=== PATIENT | female | born 1995 | race Caucasian/White ===

== ENCOUNTER 2017-01-11 09:48 | Day surgery (SDC) | payer BC, OTHER ==
[2017-01-10 14:10] VITALS: BMI 34.3
[2017-01-11] MEDS ORDERED: Oxymetazoline HCl 0.05% ( 15 ML ) ONE ×2 (10:17→12:43)
[2017-01-11 11:18] LABS: Hematocrit 39.8 % (36.0-47.0)
[2017-01-11] MEDS ORDERED: Lidocaine 2% w/Epinephrine 1:200K 20 ML VIAL ONE (12:43)
[2017-01-11] MEDS ORDERED: Bupivacaine 0.25% HCL 30 ML VIAL ONE (12:43)
[2017-01-11] MEDS ORDERED: Fentanyl 250 MCG/5 ML VIAL ONE (12:59)
[2017-01-11] MEDS ORDERED: Ondansetron HCl/PF 4 MG/2 ML Vial ONE (13:15)
[2017-01-11] MEDS ORDERED: Lidocaine 2% PF 10 ML AMP (For Epidural Use) ONE (13:15)
[2017-01-11] MEDS ORDERED: Propofol 200 MG/20 ML VIAL ONE (13:15)
[2017-01-11] MEDS ORDERED: Fentanyl 100 MCG/2 ML VIAL ONE ×2 (14:17→14:33)
--- NOTE | 2017-01-11 18:12 | OP ---
PREOPERATIVE DIAGNOSES: Chronic sinusitis, bilateral frontoethmoid mucoceles, and chronic right max illary sinusitis. POSTOPERATIVE DIAGNOSES: Chronic sinusitis, bilateral frontoethmoid mucoceles, and chronic right ma xillary sinusitis. PROCEDURES PERFORMED: 1. Bilateral nasal endoscopy with maxillary antrostomy with removal of tissue. 2. Bilateral nasal endoscopy with total ethmoidectomy. 3. Bilateral nasal endoscopy with frontal sinusotomy. 4. Bilateral nasal endoscopy with submucosal resection of inferior turbinates. FINDINGS: The patient was found to have bilateral frontoethmoid mucoceles from previous surgery wit h purulence encountered in each respective mucocele. PROCEDURE IN DETAIL: After consent was obtained, the patient was identified, brought to the operati ng room, and placed on the operating room table in the supine position. Consent was obtained, notif zaheer the patient of the possibility of additional infections, bleeding, brain injury, and eye/orbita l injury. The patient was placed on the operating room table, and general endotracheal anesthesia and intravenous access was obtained. The patient was then positioned, prepped and draped for endosc opic sinus surgery. Nasal preparation included trimming nasal vestibular hairs and spraying in topi aaron Afrin. We then placed Afrin topical solution on nasal pledgets and strategically located them i ntranasally. The perinasal mucosa was injected with 1% lidocaine with 1:100,000 epinephrine in the submucoperichondrial plane of the septum, lateral nasal wall, and anterior to the uncinate. The pat ient was then prepped and draped in a sterile fashion and positioned for endoscopic sinus surgery. Maxillary Antrostomy: The uncinate was then identified and the extent of the uncinate was appreciat ed by out-fracturing the uncinate with the ball-tip probe. We then used the sickle blade to disarti culate the uncinate from the lateral nasal wall. This was then removed with straight biting and upb iting punches with the remaining shrouds of mucosa and bony septum removed with the micro-debrider. The natural os of the maxillary sinus was then identified and enlarged with the maxillary punches a nd back biting forceps. Total Ethmoidectomy: The anterior face of the ethmoid bulla was entered and with the micro-debrider , dissection continued posteriorly to the ground lamella. The limits of dissection included the ins ertion of the middle turbinate, medial orbital wall, and base of skull. We similarly identified the frontal recess and removed shrouds of bone and debris in that region to obtain patency into the agg er nasi region and frontal recess. We then entered the ground lamella and its anteroinferior aspect and proceeded posteriorly, opening the posterior ethmoid air-cell system. Again, the limits of dis section included the base of skull and medial orbital wall. Frontal sinusotomy: The anterior face of the ethmoid bulla was entered and with the micro-debrider, dissection continued posteriorly to the ground lamella. The limits of dissection included the inse rtion of the middle turbinate, medial orbital wall, and base of skull. We similarly identified the frontal recess and removed shrouds of bone and debris in that region to obtain patency into the Agge r Nasi region and frontal recess. We then entered the ground lamella and its anteroinferior aspect and proceeded posteriorly, opening the posterior ethmoid air-cell system. Again, the limits of diss ection included the base of skull and medial orbital wall. Submucosal resection of inferior turbinates: The inferior turbinates were visualized with a 0-degre e endoscope and outfractured with a Linda elevator. The inferior medial aspect was cauterized with t he electrocautery. Hemostasis was obtained. After adequate airway was established, we turned our att ention to the contralateral side and used a similar procedure. Again, a Linda elevator was used to o utfracture inferior turbinates under endoscopic visualization. With a suction cautery, the free infe rior medial aspect was cauterized under direct visualization along the length of the inferior turbin ate. The inferior turbinates were visualized under endoscopic visualization and outfractured with the alberto vator. The inferolateral edge of the inferior turbinate was then cauterized along its length with t he suction cautery without difficulty. At this point, we then turned our attention to the contralateral side and proceeded with endoscopic sinus surgery. At the completion of the case, Rice keel splints were placed in the ethmoid cavities after the ethmo idectomy. There were no complications. The patient tolerated the procedure well and was discharged to the recovery room in stable condition prior to return to the preoperative Day Stay with ultimate discharge home. Prescriptions for pain medication and antibiotics were provided. The patient rece ived intramuscular Depo-Medrol during the case.
== END 2017-01-11 16:00 ==
LOC: SDC 09:48
PROVIDERS: ATTEND Specialist
PROC: 099R8ZZ Drainage of Left Maxillary Sinus, Via Natural or Artificial Opening Endoscopic (ICD-10-PCS; principal; 2017-01-11)
PROC: 09BT8ZZ Excision of Left Frontal Sinus, Via Natural or Artificial Opening Endoscopic (ICD-10-PCS; principal; 2017-01-11)
PROC: 09TU8ZZ Resection of Right Ethmoid Sinus, Via Natural or Artificial Opening Endoscopic (ICD-10-PCS; principal; 2017-01-11)
PROC: 09TL8ZZ Resection of Nasal Turbinate, Via Natural or Artificial Opening Endoscopic (ICD-10-PCS; principal; 2017-01-11)
PROC: 09BS8ZZ Excision of Right Frontal Sinus, Via Natural or Artificial Opening Endoscopic (ICD-10-PCS; principal; 2017-01-11)
PROC: 09TV8ZZ Resection of Left Ethmoid Sinus, Via Natural or Artificial Opening Endoscopic (ICD-10-PCS; principal; 2017-01-11)
PROC: 099Q8ZZ Drainage of Right Maxillary Sinus, Via Natural or Artificial Opening Endoscopic (ICD-10-PCS; principal; 2017-01-11)
DX: J32.9 Chronic sinusitis, unspecified (principal); J34.1 Cyst and mucocele of nose and nasal sinus; J45.909 Unspecified asthma, uncomplicated; E07.9 Disorder of thyroid, unspecified; J40 Bronchitis, not specified as acute or chronic; Z79.3 Long term (current) use of hormonal contraceptives; Z79.899 Other long term (current) drug therapy; Z90.89 Acquired absence of other organs; Z98.890 Other specified postprocedural states
CPT/HCPCS: 84703; 85014; 96374; J2001; J2405; J2704; J3010; S0020